=== PATIENT | female | born 1985 | race Caucasian/White ===

== ENCOUNTER 2018-11-01 15:53 | Emergency (ER) | payer BC, OTHER ==
[2018-11-01] MEDS ORDERED: KETOROLAC 30 MG/ML VIAL IM STA (16:20)
--- NOTE | 2018-11-01 16:20 | ED Physician Documentation ---
PD HPI NECK PAIN - Stated complaint Stated Complaint: NECK PAIN - Chief complaint Chief Complaint: Trauma Hd/Nk - History obtained from History obtained from: Patient, Family - History of Present Illness Timing - onset: Other (32 yo woman with hx neck injury with known c5 disk issue. Seeing a neurosurgeon. Increased neck pain x 2 days. She complains of spasmodic burning and shocking pain from the skull base and all 4 extremities. She has a history of alcoholism and was in detox until a few months ago. She did relapse recently and her last drink was this morning. She also has mild withdrawal sym ptoms and a lot of anxiety. She is living with her parents.) Review of Systems Constitutional: reports: Reviewed and negative Ears: reports: Reviewed and negative Throat: reports: Reviewed and negative PD PAST MEDICAL HISTORY - Present Medications Home Medications: Ambulatory Orders Medication Instructions Recorded Confirmed Gabapentin [Neurontin] 300 mg PO TID #60 capsule 11/01/18 Lorazepam [Ativan] 1 mg PO TID PRN #15 tablet 11/01/18 Meloxicam [Mobic] 7.5 mg PO BID PRN #20 tablet 11/01/18 - Allergies Allergies/Adverse Reactions: Allergies Allergy/AdvReac Type Severity Reaction Status Date / Time amoxicillin Allergy Unknown Verified 11/01/18 16:00 ampicillin Allergy Unknown Verified 11/01/18 16:00 Penicillins Allergy Unknown Verified 11/01/18 16:00 Opioids - Morphine Analogues AdvReac Nausea Verified 11/01/18 16:00 PD ED PE NORMAL - Vitals Vital signs reviewed: Yes - General General: Other (uncomfortable and tearful. 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 Unable to check triceps reflexes due to her positioning.) - Neuro Neuro: Alert and oriented X 3, Normal speech Results - Vitals Vitals: Vital Signs - 24 hr 11/01/18 15:57 Temperature 37.3 C Heart Rate 118 H Respiratory 17 Rate Blood Pressure 132/80 H O2 Saturation 98 Oxygen O2 Source Room air PD MEDICAL DECISION MAKING - ED course ED course: This is a 32-year-old woman with an acute exacerbation of chronic neck pain due to cervical radiculopathy with a strong overlay of anxiety and possibly mild alcohol withdrawal symptoms. She was treated here with Toradol, gabapentin and Ativan. She was given prescriptions and her father is willing to hold the prescriptions to prevent overuse. Departure - Departure Disposition: 01 Home, Self Care Clinical Impression: Chronic neck pain Condition: Good Record reviewed to determine appropriate education?: Yes Instructions: ED Cervical Radiculopathy Prescriptions: Gabapentin [Neurontin] 300 mg PO TID #60 capsule Lorazepam [Ativan] 1 mg PO TID PRN #15 tablet PRN Reason: Anxiety Meloxicam [Mobic] 7.5 mg PO BID PRN #20 tablet PRN Reason: Pain Comments: Follow-up with your spine surgeon as soon as possible, return for new or worsening symptoms. The Ativan/lorazepam and gabapentin should be kept by your father and distributed to you only as prescribed to avoid overuse.
[2018-11-01] MEDS ORDERED: LORazepam 2 MG/ML VIAL IM STA (16:26)
[2018-11-01] MEDS ORDERED: GABAPENTIN 100 MG CAPSULE PO STA (16:30)
[2018-11-01 16:55] VITALS: BP 101/55
== END 2018-11-01 16:56 | disposition home or self-care (01) ==
LOC: ED 15:53
DX: G89.29 Other chronic pain (principal); M54.2 Cervicalgia
CPT/HCPCS: 96372; 99283; A9270; J2060